=== PATIENT | male | born 1965 | race American Indian/Alaskan Native ===

== ENCOUNTER 2020-11-26 11:13 | Emergency (ER) | payer SELFPAY ==
[2020-11-26 11:28] VITALS: BP 117/72
[2020-11-26] MEDS ORDERED: predniSONE 20 MG TAB PO ONE (11:56)
[2020-11-26] MEDS ORDERED: IPRATROPIUM/ALBUTEROL SULFATE 3 ML AMPUL.NEB IH ONE (11:56)
--- NOTE | 2020-11-26 13:19 | Emergency Department Report ---
ED Asthma HPI - General Chief Complaint: Dyspnea/Respdistress Stated Complaint: ASTHMA/CRAMPING IN HANDS Time Seen by Provider: 11/26/20 11:37 Source: patient Mode of arrival: Ambulatory Limitations: No Limitations - History of Present Illness Initial Comments: This is a 54-year-old male nontoxic, well nourished in appearance, no acute signs of distress presents to the ED with c/o of acute on chronic asthma exacerbation. Patient stated he is out of her albuterol inhaler 1 month. Patient denies any cough. Patient denies any sick contact. Patient denies any recent travels, long car, recent hospital stays. Patient denies any calf pain or calf tenderness. Patient denies any chest pain, fever, chills, nausea, vomiting, hemoptysis, numbness, tingling, headache or stiff neck. Past medical history includes asthma. MD Complaint: "asthma attack", wheezing -: days(s) Associated Symptoms: none. denies: productive cough, dry cough, fever, chest pain, hemoptysis, leg edema, syncope - Related Data Current Asthma Therapy: none Previous Rx's Medication Instructions Recorded Last Taken Type Albuterol Mdi (or & Nicu Only) 2 puff IH QID PRN #8.5 gram 11/26/20 Unknown Rx [ProAir HFA Inhaler] Albuterol Sulfate [Albuterol 0.63% 0.63 mg IH TID PRN #1 box 11/26/20 Unknown Rx NEBS] Prednisone [predniSONE 10 mg 10 mg PO .TAPER #1 tab.ds.pk 11/26/20 Unknown Rx (6-Day Pack, 21 Tabs)] Allergies Allergy/AdvReac Type Severity Reaction Status Date / Time No Known Allergies Allergy Verified 11/26/20 11:25 ED Review of Systems ROS: Stated complaint: ASTHMA/CRAMPING IN HANDS Other details as noted in HPI Constitutional: denies: chills, fever Eyes: denies: eye pain, eye discharge, vision change ENT: denies: ear pain, throat pain Respiratory: shortness of breath, wheezing. denies: cough Cardiovascular: denies: chest pain, palpitations Endocrine: no symptoms reported Gastrointestinal: denies: abdominal pain, nausea, diarrhea Genitourinary: denies: urgency, dysuria Musculoskeletal: denies: back pain, joint swelling, arthralgia Skin: denies: rash, lesions Neurological: denies: headache, weakness, paresthesias Psychiatric: denies: anxiety, depression Hematological/Lymphatic: denies: easy bleeding, easy bruising ED Past Medical Hx - Past Medical History Previous Medical History?: Yes Hx Asthma: Yes - Surgical History Past Surgical History?: No - Social History Smoking Status: Never Smoker Substance Use Type: None - Medications Home Medications: Home Medications Medication Instructions Recorded Confirmed Last Taken Type Albuterol Mdi (or & Nicu Only) 2 puff IH QID PRN #8.5 gram 11/26/20 Unknown Rx [ProAir HFA Inhaler] Albuterol Sulfate [Albuterol 0.63% 0.63 mg IH TID PRN #1 box 11/26/20 Unknown Rx NEBS] Prednisone [predniSONE 10 mg 10 mg PO .TAPER #1 tab.ds.pk 11/26/20 Unknown Rx (6-Day Pack, 21 Tabs)] ED Physical Exam - General Limitations: No Limitations General appearance: alert, in no apparent distress - Head Head exam: Present: atraumatic, normocephalic - Eye Eye exam: Present: normal appearance - Neck Neck exam: Present: normal inspection, full ROM - Respiratory Respiratory exam: Present: wheezes (Bilateral expiratory wheezing). Absent: respiratory distress, rales, rhonchi, stridor, chest wall tenderness, accessory muscle use, decreased breath sounds, prolonged expiratory - Cardiovascular Cardiovascular Exam: Present: regular rate, normal rhythm, normal heart sounds. Absent: bradycardia, tachycardia, irregular rhythm, systolic murmur, diastolic murmur, rubs, gallop - Extremities Exam Extremities exam: Present: full ROM - Back Exam Back exam: Present: full ROM - Neurological Exam Neurological exam: Present: alert, oriented X3, normal gait - Psychiatric Psychiatric exam: Present: normal affect, normal mood - Skin Skin exam: Present: warm, dry, intact, normal color. Absent: rash ED Course Vital Signs 11/26/20 11/26/20 11/26/20 11:25 13:10 13:59 Temperature 98 F Pulse Rate 108 H 82 Pulse Rate [ 83 Anterior Bilateral Throughout] Respiratory 16 18 Rate Respiratory 19 Rate [Anterior Bilateral Throughout] Blood Pressure 117/72 O2 Sat by Pulse 98 100 Oximetry - Reevaluation(s) Reevaluation #1: 11/26/20 13:19 Patient is speaking in full sentences with no signs of distress noted. ED Medical Decision Making - Medical Decision Making This is a 54-year-old male that presents with asthma exacerbation. Patient is stable and was examined by me. Patient did receive DuoNeb and steroids in the ED which patient the symptoms has resolved and subsided. Posttreatment and there is no wheezing upon auscultation. Patient is discharged with albuterol and prednisone. Patient was referred to Follow-up with a primary care doctor in 3-5 days or if symptoms worsen and continue return to emergency room as soon as possible. At time of discharge, the patient does not seem toxic or ill in appearance. No acute signs of distress noted. Patient agrees to discharge treatment plan of care. No further questions noted by the patient. This chart is dictated with using [employer] Critical care attestation.: If time is entered above; I have spent that time in minutes in the direct care of this critically ill patient, excluding procedure time. ED Disposition Clinical Impression: Asthma exacerbation Qualifiers: Asthma severity: mild Asthma persistence: intermittent Qualified Code(s): J45.21 - Mild intermittent asthma with (acute) exacerbation Disposition: TO HOME OR SELFCARE Is pt being admited?: No Does the pt Need Aspirin: No Condition: Stable Instructions: Asthma, Adult Additional Instructions: Follow-up with a primary care doctor in 3-5 days or if symptoms worsen and continue return to emergency room as soon as possible. Prescriptions: Albuterol Sulfate [Albuterol 0.63% NEBS] 0.63 mg IH TID PRN #1 box PRN Reason: Wheezing Prednisone [predniSONE 10 mg (6-Day Pack, 21 Tabs)] 10 mg PO .TAPER #1 tab.ds.pk Albuterol Mdi (or & Nicu Only) [ProAir HFA Inhaler] 2 puff IH QID PRN #8.5 gram PRN Reason: Shortness Of Breath Referrals: PRIMARY MD JOYCE [Primary Care Provider] - 3-5 Days MICHAEL LUNDBERG MD [Staff Physician] - 3-5 Days Forms: Work/School Release Form(ED) Time of Disposition: 13:55
== END 2020-11-26 14:17 | disposition home or self-care (01) ==
LOC: ED 11:13
DX: J45.901 Unspecified asthma with (acute) exacerbation (principal); Z79.899 Other long term (current) drug therapy
CPT/HCPCS: 94640; 99282; J7512; 94644

== ENCOUNTER 2020-12-06 08:39 | Emergency (ER) | payer SELFPAY ==
[2020-12-06] MEDS ORDERED: IPRATROPIUM/ALBUTEROL SULFATE 3 ML AMPUL.NEB IH ONE ×2 (09:14→10:52)
[2020-12-06 09:17] VITALS: BP 117/75
[2020-12-06] MEDS ORDERED: methylPREDNISolone Sod Succinate 125 MG/2 ML INJ IV ONE (09:29)
--- NOTE | 2020-12-06 09:34 | Emergency Department Report ---
ED Shortness of Breath HPI - General Chief Complaint: Adult Asthma Stated Complaint: TORI Time Seen by Provider: 12/06/20 09:13 Source: patient Mode of arrival: Ambulatory Limitations: No Limitations - History of Present Illness Initial Comments: 54-year-old male complains of persistent cough and wheezing despite home treatment. He states his home neb machine helped but his handheld inhaler exacerbated his cough. The cough is nonproductive. He does not complain of chest pain. He said no recent fever or chills. Patient states that he was on prednisone 1 to 2 weeks ago. He was seen here on November 26. He states that he has previously been intubated for exacerbation of asthma in the past. This was quite some time ago. The patient is somewhat of a poor historian. MD Complaint: "asthma attack" -: Gradual, hour(s), days(s) Known History Of: asthma Context: recent URI Treatments Prior to Arrival: bronchodilator - Related Data Home Oxygen Therapy: No Previous Rx's Medication Instructions Recorded Last Taken Type Prednisone [predniSONE 10 mg 10 mg PO .TAPER #1 tab.ds.pk 11/26/20 Unknown Rx (6-Day Pack, 21 Tabs)] Albuterol Mdi (or & Nicu Only) 2 puff IH QID PRN #8.5 gram 12/06/20 Unknown Rx [ProAir HFA Inhaler] Albuterol Sulfate [Albuterol 0.63% 0.63 mg IH TID PRN #1 box 12/06/20 Unknown Rx NEBS] predniSONE [Deltasone] 60 mg PO QDAY #20 tab 12/06/20 Unknown Rx Allergies Allergy/AdvReac Type Severity Reaction Status Date / Time No Known Allergies Allergy Verified 12/06/20 08:42 ED Review of Systems ROS: Stated complaint: TORI Other details as noted in HPI Constitutional: denies: chills, fever Eyes: denies: eye pain, vision change ENT: denies: ear pain, throat pain Respiratory: cough (Nonproductive), wheezing Cardiovascular: denies: chest pain, palpitations Endocrine: no symptoms reported Gastrointestinal: denies: abdominal pain, nausea, diarrhea Genitourinary: denies: urgency, dysuria Musculoskeletal: denies: back pain, myalgia Skin: denies: rash, lesions Neurological: denies: headache, weakness, paresthesias Psychiatric: denies: anxiety, depression Hematological/Lymphatic: denies: easy bleeding, easy bruising ED Past Medical Hx - Past Medical History Previous Medical History?: Yes Hx Asthma: Yes Additional medical history: States previous intubation - Social History Smoking Status: Never Smoker Substance Use Type: None - Medications Home Medications: Home Medications Medication Instructions Recorded Confirmed Last Taken Type Prednisone [predniSONE 10 mg 10 mg PO .TAPER #1 tab.ds.pk 11/26/20 Unknown Rx (6-Day Pack, 21 Tabs)] Albuterol Mdi (or & Nicu Only) 2 puff IH QID PRN #8.5 gram 12/06/20 Unknown Rx [ProAir HFA Inhaler] Albuterol Sulfate [Albuterol 0.63% 0.63 mg IH TID PRN #1 box 12/06/20 Unknown Rx NEBS] predniSONE [Deltasone] 60 mg PO QDAY #20 tab 12/06/20 Unknown Rx ED Physical Exam - General Limitations: No Limitations General appearance: alert, in no apparent distress - Head Head exam: Present: atraumatic, normocephalic - Eye Eye exam: Present: normal appearance. Absent: scleral icterus - ENT ENT exam: Present: mucous membranes moist - Neck Neck exam: Present: normal inspection - Respiratory Respiratory exam: Present: wheezes (1+ bilateral). Absent: respiratory distress - Cardiovascular Cardiovascular Exam: Present: regular rate, normal rhythm. Absent: systolic murmur, diastolic murmur, rubs, gallop - GI/Abdominal GI/Abdominal exam: Present: soft, normal bowel sounds. Absent: distended, tenderness, guarding, rebound - Rectal Rectal exam: Present: deferred - Extremities Exam Extremities exam: Present: normal inspection. Absent: pedal edema, joint swelling, calf tenderness - Back Exam Back exam: Present: normal inspection - Neurological Exam Neurological exam: Present: alert, oriented X3, CN II-XII intact. Absent: motor sensory deficit - Psychiatric Psychiatric exam: Present: normal affect, normal mood - Skin Skin exam: Present: warm, dry, intact, normal color. Absent: rash ED Course Vital Signs 12/06/20 12/06/20 12/06/20 08:42 09:10 09:15 Temperature 98.1 F 98.2 F Pulse Rate 97 H 85 Pulse Rate [ Bilateral Throughout] Respiratory 32 H 18 18 Rate Respiratory Rate [Bilateral Throughout] Blood Pressure 153/93 Blood Pressure 117/75 [right arm] O2 Sat by Pulse 96 95 95 Oximetry 12/06/20 09:41 Temperature Pulse Rate Pulse Rate [ 94 H Bilateral Throughout] Respiratory Rate Respiratory 18 Rate [Bilateral Throughout] Blood Pressure Blood Pressure [right arm] O2 Sat by Pulse Oximetry Patient with mild residual wheezing. States he is ready to go. He will be given 1 more DuoNeb prior to discharge. He states he does not have a primary care provider. I have reinforced the need for primary care particularly in an asthmatic that has been previously intubated. [facility] will be [facility] to the [facility]. - Reevaluation(s) Reevaluation #1: Very slight residual wheezing was noted on the assessment. Pulse oximetry is fine. Work of breathing is normal. Patient will be discharged after additional neb. 12/06/20 10:53 ED Medical Decision Making - Lab Data Result diagrams: 12/06/20 09:37 12/06/20 09:37 Laboratory Results - last 24 hr 12/06/20 12/06/20 12/06/20 09:37 09:37 09:37 WBC 13.5 H RBC 5.45 H Hgb 12.4 Hct 38.0 MCV 70 L MCH 23 L MCHC 33 RDW 14.3 Plt Count 205 Lymph % (Auto) 29.1 [place] % (Auto) 6.8 Eos % (Auto) 1.4 Baso % (Auto) 0.3 Lymph # (Auto) 3.9 [place] # (Auto) 0.9 H Eos # (Auto) 0.2 Baso # (Auto) 0.0 Seg Neutrophils % 62.4 Seg Neutrophils # 8.4 H Sodium 139 Potassium 3.7 Chloride 103.3 Carbon Dioxide 27 Anion Gap 12 BUN 13 Creatinine 0.9 Estimated GFR > 60 BUN/Creatinine Ratio 14 Glucose 102 H Calcium 8.6 Magnesium 2.00 - Radiology Data Radiology results: report reviewed, image reviewed Critical care attestation.: If time is entered above; I have spent that time in minutes in the direct care of this critically ill patient, excluding procedure time. ED Disposition Clinical Impression: Asthma exacerbation Qualifiers: Asthma severity: moderate Asthma persistence: persistent Qualified Code(s): J45.41 - Moderate persistent asthma with (acute) exacerbation Disposition: TO HOME OR SELFCARE Is pt being admited?: No Does the pt Need Aspirin: No Condition: Stable Instructions: Asthma, Adult Additional Instructions: Follow-up with primary care physician. Medication as directed. Return as needed. Prescriptions: Albuterol Sulfate [Albuterol 0.63% NEBS] 0.63 mg IH TID PRN #1 box PRN Reason: Wheezing predniSONE [Deltasone] 60 mg PO QDAY #20 tab Albuterol Mdi (or & Nicu Only) [ProAir HFA Inhaler] 2 puff IH QID PRN #8.5 gram PRN Reason: Shortness Of Breath Referrals: PRIMARY CARE, [Primary Care Provider] - 3-5 Days [facility] [Provider Group] - 2-3 Days
[2020-12-06 10:02] LABS: Basophils % (Auto) 0.3 % (0.0-1.8); Eosinophils # (Auto) 0.2 K/mm3 (0.0-0.4); Eosinophils % (Auto) 1.4 % (0.0-4.3); Hemoglobin 12.4 gm/dl (11.8-15.2); Lymphocytes # (Auto) 3.9 K/mm3 (1.2-5.4); Lymphocytes % (Auto) 29.1 % (13.4-35.0); Mean Corpuscular HGB Conc 33 % (32-34); Monocytes # (Auto) 0.9 K/mm3 (0.0-0.8); Monocytes % (Auto) 6.8 % (0.0-7.3); Platelet Count 205 K/mm3 (140-440); Red Blood Count 5.45 M/mm3 (3.65-5.03); Red Cell Distribution Width 14.3 % (13.2-15.2)
[2020-12-06 10:06] LABS: Mean Corpuscular Volume 70 fl (84-94)
[2020-12-06 10:09] LABS: BUN/Creatinine Ratio 14; Blood Urea Nitrogen 13 mg/dL (9-20); Calcium 8.6 mg/dL (8.4-10.2); Hemolysis Index 1
--- NOTE | 2020-12-06 11:14 | XRay Report ---
CHEST 1 VIEW 12/06/2020 10:08 AM INDICATION / CLINICAL INFORMATION: SOB. COMPARISON: None available. FINDINGS: SUPPORT DEVICES: None. HEART / MEDIASTINUM: No significant abnormality. LUNGS / PLEURA: No significant pulmonary or pleural abnormality. No pneumothorax. ADDITIONAL FINDINGS: No significant additional findings. IMPRESSION: 1. No acute findings. Signer Name: Josué Valdes MD Signed: 12/06/2020 11:10 AM Workstation Name: [id number]
== END 2020-12-06 12:13 | disposition home or self-care (01) ==
LOC: ED 08:39
DX: J45.901 Unspecified asthma with (acute) exacerbation (principal); Z79.899 Other long term (current) drug therapy
CPT/HCPCS: 36415; 71045; 80048; 83735; 85025; 94640; 96374; 99284; J2930; 94644

== ENCOUNTER 2020-12-17 06:15 | Emergency (ER) | payer SELFPAY ==
[2020-12-17] MEDS ORDERED: ALBUTEROL 2.5 MG/3 ML NEBU IH ONE (07:30)
--- NOTE | 2020-12-17 07:36 | Emergency Department Report ---
ED Asthma HPI - General Chief Complaint: Adult Asthma Stated Complaint: ASTHMA Time Seen by Provider: 12/17/20 07:15 Source: patient Mode of arrival: Ambulatory Limitations: No Limitations - History of Present Illness Initial Comments: 55-year-old male presents to the emergency room stating that he woke up suddenly at 5 AM with coughing and with wheezing. Patient states he used albuterol inhaler which made his cough worse he also took 20 mg of prednisone which made his symptoms better. he has a long history of asthma was last seen in this emergency room on 12/06/2020 he was given a prescription for prednisone and albuterol inhaler. Patient states he is currently out of the albuterol aerosol for his neb treatment. He is in no acute distress and states that he is feeling much better. Patient denies chest pain is currently with no shortness of breath no fever no chills no nausea no vomiting. -: Sudden, This morning (5 AM) Asthma History: history of frequent attac, previously intubated Severity: mild Context: allergen exposure (States he was outdoors most of yesterday) Associated Symptoms: dry cough. denies: productive cough, fever, chest pain, hemoptysis, leg edema, syncope Treatments Prior to Arrival: inhaled bronchodilator, other (Oral prednisone) - Related Data Current Asthma Therapy: recent oral steroid Previous Rx's Medication Instructions Recorded Last Taken Type Prednisone [predniSONE 10 mg 10 mg PO .TAPER #1 tab.ds.pk 11/26/20 Unknown Rx (6-Day Pack, 21 Tabs)] Albuterol Mdi (or & Nicu Only) 2 puff IH QID PRN #8.5 gram 12/06/20 Unknown Rx [ProAir HFA Inhaler] Albuterol Sulfate [Albuterol 0.63% 0.63 mg IH TID PRN #1 box 12/06/20 Unknown Rx NEBS] predniSONE [Deltasone] 60 mg PO QDAY #20 tab 12/06/20 Unknown Rx Albuterol Mdi (or & Nicu Only) 1 puff IH TID PRN #8.5 gram 12/17/20 Unknown Rx [ProAir HFA Inhaler] Albuterol Sulfate [Albuterol 0.63% 0.63 mg IH TID PRN #1 box 12/17/20 Unknown Rx NEBS] Allergies Allergy/AdvReac Type Severity Reaction Status Date / Time No Known Allergies Allergy Verified 12/06/20 08:42 ED Review of Systems ROS: Stated complaint: ASTHMA Other details as noted in HPI Comment: All other systems reviewed and negative Constitutional: no symptoms reported Eyes: denies: eye pain ENT: denies: throat pain, dental pain Respiratory: cough, wheezing Cardiovascular: denies: chest pain, palpitations, dyspnea on exertion, edema, syncope, paroxysmal nocturnal dyspnea Endocrine: denies: excessive sweating, flushing, intolerance to cold, intolerance to heat Gastrointestinal: denies: abdominal pain, nausea Skin: denies: rash Neurological: denies: headache, weakness, numbness, confusion, abnormal gait Hematological/Lymphatic: denies: as per HPI ED Past Medical Hx - Past Medical History Previous Medical History?: Yes Hx Asthma: Yes Additional medical history: States previous intubation - Surgical History Past Surgical History?: No - Social History Smoking Status: Never Smoker Substance Use Type: None - Medications Home Medications: Home Medications Medication Instructions Recorded Confirmed Last Taken Type Prednisone [predniSONE 10 mg 10 mg PO .TAPER #1 tab.ds.pk 11/26/20 Unknown Rx (6-Day Pack, 21 Tabs)] Albuterol Mdi (or & Nicu Only) 2 puff IH QID PRN #8.5 gram 12/06/20 Unknown Rx [ProAir HFA Inhaler] Albuterol Sulfate [Albuterol 0.63% 0.63 mg IH TID PRN #1 box 12/06/20 Unknown Rx NEBS] predniSONE [Deltasone] 60 mg PO QDAY #20 tab 12/06/20 Unknown Rx Albuterol Mdi (or & Nicu Only) 1 puff IH TID PRN #8.5 gram 12/17/20 Unknown Rx [ProAir HFA Inhaler] Albuterol Sulfate [Albuterol 0.63% 0.63 mg IH TID PRN #1 box 12/17/20 Unknown Rx NEBS] ED Physical Exam - General Limitations: No Limitations General appearance: alert, in no apparent distress - Head Head exam: Present: atraumatic - Eye Eye exam: Present: normal appearance - ENT ENT exam: Present: normal exam, mucous membranes moist - Neck Neck exam: Present: normal inspection - Respiratory Respiratory exam: Present: normal lung sounds bilaterally. Absent: respiratory distress, wheezes, rales, rhonchi, accessory muscle use - Cardiovascular Cardiovascular Exam: Present: regular rate, normal heart sounds - GI/Abdominal GI/Abdominal exam: Present: soft - Extremities Exam Extremities exam: Present: normal inspection - Back Exam Back exam: Present: normal inspection - Neurological Exam Neurological exam: Present: alert, oriented X3 - Psychiatric Psychiatric exam: Present: normal affect - Skin Skin exam: Present: warm, dry, intact, normal color ED Course Vital Signs 12/17/20 06:40 Temperature 98.4 F Pulse Rate 94 H Respiratory 19 Rate Blood Pressure 122/72 O2 Sat by Pulse 92 Oximetry - Reevaluation(s) Reevaluation #1: 12/17/20 08:30 Neb treatment completed lungs auscultated clear breath sounds patient reports feeling much better his respirations easy and unlabored. Ready for discharge to home ED Medical Decision Making - Medical Decision Making 55-year-old male with history of asthma frequent asthma flare he does not have primary care doctor to follow-up with. He presents to the emergency room with sudden onset of coughing and wheezing at 5 AM this morning at home patient use his inhaler which he felt made his coughing worse. He also subsequently took 20 mg of prednisone and his symptoms improved. Patient states he is out of the albuterol nebulizer solution and was not able to do a breathing treatment at home. On my initial evaluation he was in no acute distress no audible wheezing. After 1 treatment of albuterol aerosol he reports great improvement his lungs are clear he is in no distress. I discussed with patient the need to establish care with a primary care doctor. he has only 8 puffs left in his inhaler. Patient prescribed with a new inhaler and albuterol aerosol solution. Critical Care Time: No Critical care attestation.: If time is entered above; I have spent that time in minutes in the direct care of this critically ill patient, excluding procedure time. ED Disposition Clinical Impression: Asthma Qualifiers: Asthma severity: mild Asthma persistence: intermittent Asthma complication type: uncomplicated Qualified Code(s): J45.20 - Mild intermittent asthma, uncomplicated Disposition: - TO HOME OR SELFCARE Is pt being admited?: No Does the pt Need Aspirin: No Condition: Stable Instructions: Asthma, Adult, Cough, Adult, [id number], Asthma (ED) Additional Instructions: Please establish care with a primary care doctor. Use your inhalers as needed continue with prednisone orally for 3 days and use your albuterol aerosol treatment 3 times a day as needed. Return to the emergency room for any worsening symptoms such as difficulty breathing wheezing fever and persistent cough Prescriptions: Albuterol Sulfate [Albuterol 0.63% NEBS] 0.63 mg IH TID PRN #1 box PRN Reason: Wheezing Albuterol Mdi (or & Nicu Only) [ProAir HFA Inhaler] 1 puff IH TID PRN #8.5 gram PRN Reason: Wheezing Referrals: PRIMARY CARE, [Primary Care Provider] - 3-5 Days MICHAEL LUNDBERG MD [Staff Physician] - 3-5 Days Time of Disposition: 08:35
[2020-12-17 08:46] VITALS: BP 111/73
== END 2020-12-17 08:46 | disposition home or self-care (01) ==
LOC: ED 06:15
DX: J45.909 Unspecified asthma, uncomplicated (principal); Z79.899 Other long term (current) drug therapy
CPT/HCPCS: 94640; 94644

== ENCOUNTER 2021-06-08 01:52 | Emergency (ER) | payer SELFPAY ==
[2021-06-08 02:10] VITALS: BP 125/83
== END 2021-06-08 05:00 ==
LOC: ED 01:52
DX: J45.909 Unspecified asthma, uncomplicated (principal); Z53.21 Procedure and treatment not carried out due to patient leaving prior to being seen by health care provider

== ENCOUNTER 2022-06-04 18:52 | Emergency (ER) | payer SELFPAY ==
--- NOTE | 2022-06-04 20:40 | XRay Report ---
CHEST 2 VIEWS INDICATION: SHORTNESS OF BREATH. COMPARISON: 12/06/2020 FINDINGS: Support devices: None. Heart: Within normal limits. Lungs/Pleura: No acute air space or interstitial disease. No significant pleural effusion. IMPRESSION: No acute findings. Signer Name: Jhon Myles MD Signed: 06/04/2022 8:36 PM Workstation Name: [id number]
== END 2022-06-05 02:34 | disposition left against medical advice (07) ==
LOC: ED 18:52
DX: R07.89 Other chest pain (principal); Z53.21 Procedure and treatment not carried out due to patient leaving prior to being seen by health care provider
CPT/HCPCS: 71046